=== PATIENT | male | born 1980 | race African-American/Black ===

== ENCOUNTER 2020-05-03 12:44 | Emergency (ER) | payer OTHER ==
[~2020-05-03] VITALS: Ht 188 cm; Wt 81.7 kg
[2020-05-03] MEDS ORDERED: TIMOLOL MALEATE5 M2 OPHTHALMIC (17:20)
[2020-05-03] MEDS ORDERED: TOBRAMYCIN SULFA5 M1 OPHTHALMIC (17:20)
[2020-05-03 17:45] VITALS: BP 150/100
== END 2020-05-03 17:45 | disposition home or self-care (01) ==
LOC: ER 12:44
DX: H10.31 Unspecified acute conjunctivitis, right eye (principal)